=== PATIENT | male | born 1975 | race Caucasian/White ===

== ENCOUNTER → 2018-07-03 | Day surgery (SDC) | payer OTHER ==
[~2018-07-03] VITALS: Ht 185.4 cm; Wt 91.2 kg
[~2018-07-03] MED LIST: CEPH500T7 PO; CHOL10005 PO; DEXAMETHASONE SOD 4 MG/ML VIAL ONE; FLU60SYR36 IM; FLUT16SP19 NS; HYDR-385 PO; LIDOCAINE MPF 1% 5 ML VIAL ONE; LIDOCAINE/SOD BICARB 8.4% SYR ID ONE; METOCLOPRAMIDE 10 MG/2 ML SDV ONE; MIDAZOLAM 2 MG/2 ML VIAL IVP PRN; OMEG-55 PO; ONDANSETRON 4 MG/2 ML VIAL ONE; PROPOFOL EMUL(*) 10MG/ML 20 ML 20 ML ONE; fentaNYL CITR 100 MCG/2 ML AMP ONE
[2018-07-03 17:00] VITALS: BP 142/86
[2018-07-03] MEDS: NORMOSOL R SOLN(*) 1000 ML BAG 1,000 ML IV PRN ×2 (17:22→17:45)
[2018-07-03] MEDS: FAMOTIDINE 20 MG/50 ML PREMIX IVPB ONE ×2 (17:22→17:45)
[2018-07-03 18:10] LABS: PLATELET COUNT, AUTOMATED 186 K/uL (150-450)
== END ==
LOC: OR 16:49
PROVIDERS: ATTEND Orthopaedic Surgery Hand Surgery
DX: Z02.9 Encounter for administrative examinations, unspecified (principal)
CPT/HCPCS: 82040; 82247; 82310; 82374; 82435; 82565; 82947; 84075; 84132; 84155; 84295; 84450; 84460; 84520; 85025; 85651; 86140; J3490

== ENCOUNTER 2018-07-04 18:58 | Day surgery (SDC) | payer OTHER ==
[~2018-07-04] VITALS: Ht 182.9 cm; Wt 91.2 kg
[2018-07-04 15:50] VITALS: BP 132/71
[~2018-07-04 18:58] MED LIST changes: +BACITRACIN/POLYMY B OINT 15 GM TP ONE; +CELECOXIB 200 MG CAP PO ONE; -CEPH500T7 PO; -DEXAMETHASONE SOD 4 MG/ML VIAL ONE; +FAMOTIDINE 20 MG TAB PO ONE; -HYDR-385 PO; -LIDOCAINE MPF 1% 5 ML VIAL ONE; -METOCLOPRAMIDE 10 MG/2 ML SDV ONE; +NORMOSOL R SOLN(*) 1000 ML BAG 1,000 ML IV PRN; -ONDANSETRON 4 MG/2 ML VIAL ONE; -PROPOFOL EMUL(*) 10MG/ML 20 ML 20 ML ONE; +ROPIVACAINE 0.2% 20 ML VIAL ONE; +cefTRIAXone(*) 2 GM VIAL 2 GM in NS(*) 0.9% 100 ML ADDVANT BAG 100 ML IVPB ONE; -fentaNYL CITR 100 MCG/2 ML AMP ONE
[2018-07-04] MEDS ORDERED: fentaNYL CITR 100 MCG/2 ML AMP ONE (19:03)
--- NOTE | 2018-07-04 19:22 | OPERATIVE REPORT 1 ---
EVENT DATE: July 04, 2018 SURGEON: Angelo Campos MD ANESTHESIOLOGIST: Arslan Michelle MD ANESTHESIA: General. HEARING INSTRUMENT SPECIALIST: Varun Mejia PA-C PREOPERATIVE DIAGNOSIS Infected left index metacarpophalangeal joint due to traumatic arthrotomy by knife while skinning elk. POSTOPERATIVE DIAGNOSES 1. Infected left index metacarpophalangeal joint due to traumatic arthrotomy by knife while skinning elk. 2. Septic joint, but no damage to articular cartilage surface. PROCEDURES PERFORMED 1. Incision and drainage, left nondominant index metacarpophalangeal joint infection (18332). 2. Repair of traumatic extensor damage at metacarpophalangeal joint (80294). ESTIMATED BLOOD LOSS Minimal. INTRAVENOUS FLUIDS Less than 500. TOURNIQUET TIME None. SPECIMENS Aerobic and anaerobic culture swabs from the joint sent for Gram stain, culture, sensitivity, and stat run. COMPLICATIONS None. SUMMARY OF PROCEDURE The patient was brought into the operating room and placed on the OR table in the supine position with the hand table at his left side. He did not receive preoperative antibiotics as per the original plan. After attaining adequate general anesthetic, the sutures were removed from the left hand, and his hand was prepped and draped in the usual sterile fashion. We opened the original laceration down to the joint and then placed the culture swabs inside to obtain good cultures. Subsequent to this, he was given Rocephin IV. We extended the incision proximally and distally and then examined the joint. The tissue was quite erythematous and indurated with a lot of hypertrophic pannus. This tissue was debrided with a rongeur as necessary. It looked like the quality of the tissue at the extensor mechanism was still intact. Both the EIP and the EDC index were intact longitudinally, but the extension of this along the sagittal band was completely disrupted over the width of the blade that had injured his hand. I am assuming he was in a semi-flexed posture, but when I opened the joint further to examine it and wash it out, it did not appear that the knife had damaged the articular surface, nor was there any visible fracture. The inside of the joint also had a lot of additional pus down along the recesses behind the condyles, which were debrided and cleared out, and we used a rongeur to clear additional pannus from this tissue that was infected. We then used an irrigating syringe to get further irrigation throughout the hand. We had started with an Asepto and then went with the spring-loaded irrigation syringe with holes in the margins so we would get lateral irrigation as well. We ran quite a bit of fluid through the hand. I did not measure the amount directly. Once we were done with this, we changed our gloves, put down a new drape, and removed all instruments that we had used so that we would close with clean instruments. The wound was irrigated one more time with new saline and a new Asepto, and then we did a 3-0 PDS suture which was monofilament to avoid bacterial colonization and still absorbable. This was used to repair the extensor mechanism. I did not attempt to repair the capsule. The wound was irrigated one final time before closing skin with nylon. He was given a dry, sterile dressing and a radial gutter splint. He was then awakened and transferred to the recovery room in stable condition. QIANA
[2018-07-04] MEDS ORDERED: CEPH500T7 PO (19:54)
[2018-07-04] MEDS ORDERED: HYDR-385 PO (19:54)
== END 2018-07-04 20:45 | disposition home or self-care (01) ==
LOC: OR 18:58
PROVIDERS: ATTEND Orthopaedic Surgery Hand Surgery
DX: M00.9 Pyogenic arthritis, unspecified (principal); S56.422A Laceration of extensor muscle, fascia and tendon of left index finger at forearm level, initial encounter; W26.0XXA Contact with knife, initial encounter; Y93.G9 Activity, other involving cooking and grilling; Y99.8 Other external cause status
CPT/HCPCS: 26075; 26410; 87070; 87073; 87077; 87186; 87205; J0696; J1100; J2001; J2405; J2704; J2765; J2795; J3010; J7050

== ENCOUNTER 2018-10-05 07:00 | Outpatient (RCR) | payer OTHER ==
--- NOTE | 2018-08-18 08:12 | PT INITIAL EVALUATION ---
MEDICAL DIAGNOSIS: L index finger MCP joint repair of traumatic extensor damage TREATMENT DIAGNOSIS: L index finger MCP joint repair of traumatic extensor damage DATE OF ONSET: 07/03/18 SUBJECTIVE: Declan is a 43 year old male who presents to physical therapy following traumatic injury to his L index MCP joint. Pt was skinning an elk on July 03, 2018 and stabbed his finger. Wound resulted in an infection requiring emergency surgery and traumatic damage to the extensor sheath and articular cartilage. 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 Pt reports that he has occasional pain in his wrist and finger especially with movement reaching up to a 2/10. Pt states that ice is not tolerated well. Pt's biggest concern is decreased ROM for occupational requirements with restrictions in flexion > extension. REHAB PROBLEM LIST: Increased Pain Decreased ROM Decreased Strength Decreased Endurance Decreased Function Decreased ADL's Decreased Mobility PREVIOUS MEDICAL HISTORY: See EM OBJECTIVE: ROM: L Wrist: flexion: 64, ext: 65, radial deviation: 24, ulnar deviation: 42, 2nd MCP: ext: 2, flex: 52, radial deviation: 5, ulnar deviation: 25, 2nd PIP: ext: 8, flex: 81, 2nd DIP: ext: 2, flex: 68 Strength: Pinch clearance coordinator strength to be tested at a later time Palpation: Incision mobility: proximal part of the incision has good mobility but distally the incision has moderate restrictions. Sensation: No numbness or tingling reported. ASSESSMENT: Declan presents to physical therapy with signs and symptoms consistent with traumatic injury to the extensor sheath of the L index finger and MCP joint. Physical therapy is indicated for this patient to address the impairments listed above to return pt to full function with ADL's and occupational requirements. Short Term Goals In 3 weeks, pt will improve 2nd MCP joint flexion ROM to <90 degrees to improve function with ADL's and occupational requirements. In 3 weeks, pt will full 2nd digit extension ROM to 0 degrees at all joints to improve function with ADL's and occupational requirements. In 3 weeks, pt will improve pinch clearance coordinator strength of the 2nd digit to equal of the contralateral 2nd digit to improve function with ADL's and occupational requirements. Patient's Goals Increase ROM and function with occupational requirements. PLAN: Patient to be seen for Manual Therapy/STM/MET Strengthening/condition Ice/Heat Range of Motion Ultrasound Stretching Iontophoresis Neuromuscular Re-ed Electrical Stim Home Exercise Program Mech./Manual Traction Therapeutic Activities 2x/Week for 3 weeks If you have any questions, comments, or concerns about this report or plan, please contact me at . Thank you, Klely Lagos, PT, DPT, CLT Marlene Ruelas, SPT This Physical Therapist was present for the entire physical therapy session directing the services, making the skilled judgement, and was not engaged in treating another patient or doing another task at the same time as the treatment session. QIANA
[~2018-10-05 07:00] MED LIST changes: -BACITRACIN/POLYMY B OINT 15 GM TP ONE; -CELECOXIB 200 MG CAP PO ONE; +CEPH500T7 PO; -FAMOTIDINE 20 MG TAB PO ONE; +HYDR-385 PO; -LIDOCAINE/SOD BICARB 8.4% SYR ID ONE; -MIDAZOLAM 2 MG/2 ML VIAL IVP PRN; -NORMOSOL R SOLN(*) 1000 ML BAG 1,000 ML IV PRN; -ROPIVACAINE 0.2% 20 ML VIAL ONE; -cefTRIAXone(*) 2 GM VIAL 2 GM in NS(*) 0.9% 100 ML ADDVANT BAG 100 ML IVPB ONE
--- NOTE | 2018-10-05 09:43 | PT PLAN OF CARE ---
Physician: Dr. Angelo Campos Patient is being seen: 2x/week Therapist: Kelly Lagos, PT, DPT, CLT Medical Diagnosis: L index finger MCP joint repair of traumatic extensor damage Treatment Diagnosis: L index finger MCP joint repair of traumatic extensor damage Date of Onset: 07/03/18 Date of Initial Evaluation: 08/18/18 Date patient was last seen: 10/05/18 Number of treatments: 8 Number of cancellations/No shows: 0 INTERVENTIONS: Manual Therapy/STM/MET Strengthening/condition Ice/Heat Range of Motion Ultrasound Stretching Iontophoresis Neuromuscular Re-ed Electrical Stim Home Exercise Program Mech./Manual Traction Therapeutic Activities GOALS: In 3 weeks, pt will improve 2nd MCP joint flexion ROM to <90 degrees to improve function with ADL's and occupational requirements. MET In 3 weeks, pt will full 2nd digit extension ROM to 0 degrees at all joints to improve function with ADL's and occupational requirements. MET In 3 weeks, pt will improve pinch data warehouse administrator strength of the 2nd digit to equal of the contralateral 2nd digit to improve function with ADL's and occupational requirements. MET PATIENT'S GOAL: Increase ROM and function with occupational requirements. Status of Patient's Goals: 3/3 Goals MET Patient Compliance: Good Prognosis: Good Reasons for continuing therapy: Declan is to discharge from physical therapy at this time having met all of his functional goals. While lingering restrictions remain secondary to scar tissue, pt has full function and ROM is near equal to the opposite side. Upon discharge Declan is to continue with stretches and ROM exercises to lengthen and improve soft tissue mobility. If any further problems arise pt is to seek further treatment. ROM: L Wrist: flexion: 70, ext: 90, radial deviation: 24, ulnar deviation: 52, 2nd MCP: ext: 10, flex: 110, radial deviation: 5, ulnar deviation: 40, 2nd PIP: ext: 8, flex: 81, 2nd DIP: ext: 2, flex: 75 Strength: Pinch Telehealth Director: L: 26#, R 26# Palpation: Incision mobility: good throughout with minimal restrictions at mid point and medial portion remaining. If you have any questions or concerns, please feel free to contact me at [phone]. Thank you, Kelly Lagos, PT, DPT, CLT [facility]
== END 2018-11-16 ==
LOC: PT 07:00
PROVIDERS: ATTEND Orthopaedic Surgery Hand Surgery
DX: M24.142 Other articular cartilage disorders, left hand (principal)
CPT/HCPCS: 97161